=== PATIENT | male | born 1950 ===

== ENCOUNTER 2018-06-20 11:31 | Day surgery (SDC) | payer MEDICARE, OTHER ==
[~2018-06-20] VITALS: Ht 175.3 cm; Wt 66.3 kg
[~2018-06-20 11:31] MED LIST: ALBU3IS INH; ALBU90OI INH; ALBUTEROL INH; ALEN70 PO; ASPI81CH PO; ASPI81EC; BREO ELLIPTA 11 EACH; BUDE6HFA INH; CALCIUM CITRAT1 EAC1 PO; CETI5 PO; CHOL10002; CIME400 PO; DILT120; Diltiazem ER120 M1; ESOM20; ESOM20 PO; FLUSAL5005; FORM12IH; FORM12IH INH; Flexeril 10 mg10 MG PO; Fludrocortison0.1 MG PO; GUAI600T33 PO; HYDACE10B PO; LEVFLO500 PO; Levaquin750 MG PO; METO25 PO; METO50 PO; MULVITMIND PO; OXYACE5T PO; PRED20 PO; ROPI1 PO; SILD50TA; SYMBICORT; TIOT18; TIOT18 INH; TIZANIDINE HCL4 MG PO; TRAZ100 PO; TRAZ50; TRIA80TC TOP; VALD10; VICODIN 5-3001 EACH PO; Ventolin Soln3 ML NEB; [UNRECOGNIZED DRUG - REMARK]; [UNRECOGNIZED DRUG - SUPPLY] MC
== END 2018-06-20 13:15 | disposition home or self-care (01) ==
LOC: ORSCSDS 11:31
PROVIDERS: Internal Medicine Gastroenterology
PROC: 0DJ08ZZ Inspection of Upper Intestinal Tract, Via Natural or Artificial Opening Endoscopic (ICD-10-PCS; principal; 2018-06-20 13:00)
DX: K25.9 Gastric ulcer, unspecified as acute or chronic, without hemorrhage or perforation (principal); I35.0 Nonrheumatic aortic (valve) stenosis; I10 Essential (primary) hypertension; K22.70 Barrett's esophagus without dysplasia; J44.9 Chronic obstructive pulmonary disease, unspecified; K21.9 Gastro-esophageal reflux disease without esophagitis; Z87.891 Personal history of nicotine dependence; Z79.82 Long term (current) use of aspirin; Z79.899 Other long term (current) drug therapy
CPT/HCPCS: J2250

== ENCOUNTER 2018-06-21 13:42 | Day surgery (SDC) | payer MEDICARE, OTHER ==
[~2018-06-21] VITALS: Ht 175.3 cm; Wt 66.1 kg
== END 2018-06-21 15:50 | disposition home or self-care (01) ==
LOC: ORSCSDS 13:42
PROVIDERS: Internal Medicine Gastroenterology
PROC: 0D778ZZ Dilation of Stomach, Pylorus, Via Natural or Artificial Opening Endoscopic (ICD-10-PCS; principal; 2018-06-21 15:00)
DX: K25.9 Gastric ulcer, unspecified as acute or chronic, without hemorrhage or perforation (principal); K31.1 Adult hypertrophic pyloric stenosis; Z85.01 Personal history of malignant neoplasm of esophagus; J44.9 Chronic obstructive pulmonary disease, unspecified; I42.1 Obstructive hypertrophic cardiomyopathy; I10 Essential (primary) hypertension; Z79.899 Other long term (current) drug therapy; Z79.82 Long term (current) use of aspirin
CPT/HCPCS: C1726; J7120

== ENCOUNTER 2018-11-10 14:08 | Emergency (ER) | payer MEDICARE, OTHER ==
[~2018-11-10] VITALS: Ht 172.7 cm; Wt 66.2 kg
[~2018-11-10 14:08] MED LIST changes: +ACYC800 PO; +ALBU2.5V5; +ATOR10 PO; +Aspir 8181 MG PO; +BREO ELLIPTA 21 EACH INH; +CALCIUM CITRAT1 EAC6 PO; +Cartia Xt240 MG PO; +FINA5 PO; +LANS15EC PO; +POTCHL20ER PO; +SENIOR TABS1 EACH PO; +TAMS.4ER PO
[2018-11-10 14:57] LABS: BASOPHILS ABSOLUTE AUTO 0.06 K/mm3 (0.00-0.23); BASOPHILS PERCENT AUTO 1 % (0-2); EOSINOPHILS ABSOLUTE AUTO 0.08 K/mm3 (0.00-0.68); EOSINOPHILS PERCENT AUTO 1 % (0-6); Hematocrit 44.6 % (37.0-53.0); Hemoglobin 14.7 g/dL (13.5-17.5); IMMATURE GRAN ABSOLUTE AUTO 0.15 K/mm3 (0.00-0.10); IMMATURE GRAN PERCENT AUTO 2 % (0-1); LYMPHOCYTES ABSOLUTE AUTO 0.77 K/mm3 (0.84-5.20); LYMPHOCYTES PERCENT AUTO 9 % (21-46); MONOCYTES ABSOLUTE AUTO 0.56 K/mm3 (0.16-1.47); MONOCYTES PERCENT AUTO 7 % (4-13); Mean Corpuscular HGB 33.9 pg (26.0-34.0); Mean Corpuscular Volume 103 fL (80-100); Mean Platelet Volume 9.3 fL (9.1-12.4); NEUTROPHILS ABSOLUTE AUTO 6.68 K/mm3 (1.96-9.15); NEUTROPHILS PERCENT AUTO 81 % (41-73); Platelet Count 212 K/mm3 (150-400); RDW Coefficient Variation 12.6 % (11.7-14.2); Red Blood Cell Count 4.34 M/mm3 (4.30-5.90)
[2018-11-10 15:22] LABS: Alanine Aminotransfer (ALT/SGP 40 U/L (12-78); Albumin/Globulin Ratio 1.1 (0.8-1.8); Alk Phos 60 U/L (50-136); Anion Gap 7 mmol/L (6-16); Aspartate Aminotrans (AST/SGOT 17 U/L (12-37); Bilirubin, Total 0.3 mg/dL (0.1-1.0); Blood Urea Nitrogen 15 mg/dL (8-24); Bun/Creatinine Ratio 17.1 (12.0-20.0); CO2, Blood 26 mmol/L (21-32); Calcium, Blood 8.8 mg/dL (8.5-10.1); Chloride, Blood 108 mmol/L (98-108); Creatinine, Blood 0.88 mg/dL (0.60-1.20); Globulin, Blood 3.5 g/dL (2.2-4.0); Glomerular Filtration Rate >60 (60-); Glucose, Blood 121 mg/dL (70-99); Potassium, Blood 4.6 mmol/L (3.5-5.5); Sodium, Blood 141 mmol/L (136-145); Total Protein, Blood 7.5 g/dL (6.4-8.2); Troponin I <0.015 ng/mL (0.000-0.040)
[2018-11-10] MEDS ORDERED: Prednisone20 MG PO (17:38)
[2018-11-10] MEDS ORDERED: LEVFLO500 PO (17:38)
[2018-12-18] MEDS ORDERED: Cartia Xt240 MG PO (08:43)
[2018-12-18] MEDS ORDERED: Aspir 8181 MG PO (08:43)
[2018-12-18] MEDS ORDERED: ATOR10 PO (08:44)
[2018-12-18] MEDS ORDERED: ALBU90OI INH (08:44)
[2018-12-18] MEDS ORDERED: Fludrocortison0.1 MG PO (08:44)
[2018-12-18] MEDS ORDERED: TRAZ100 PO (08:44)
[2018-12-18] MEDS ORDERED: POTCHL20ER PO (08:44)
[2018-12-18] MEDS ORDERED: CALCIUM CITRAT1 EAC3 PO (08:45)
[2018-12-18] MEDS ORDERED: SENIOR TABS1 EACH PO (08:45)
[2018-12-18] MEDS ORDERED: TIOT18 INH (08:45)
[2018-12-18] MEDS ORDERED: ALBU2.5V5 (08:46)
[2018-12-18] MEDS ORDERED: BREO ELLIPTA 21 EACH INH (08:46)
[2018-12-18] MEDS ORDERED: TAMS.4ER PO (08:46)
[2018-12-18] MEDS ORDERED: ROPI1 PO (08:46)
[2018-12-18] MEDS ORDERED: FINA5 PO (08:47)
[2018-12-18] MEDS ORDERED: LANS15EC PO (08:47)
[2018-12-18] MEDS ORDERED: CETI5 PO (08:47)
[2018-12-18] MEDS ORDERED: ALBU3IS (08:47)
== END 2018-11-10 18:39 | disposition home or self-care (01) ==
LOC: ER 14:08
PROVIDERS: Physician Assistant
DX: J44.0 Chronic obstructive pulmonary disease with (acute) lower respiratory infection (principal); J20.9 Acute bronchitis, unspecified; D64.9 Anemia, unspecified; K21.9 Gastro-esophageal reflux disease without esophagitis; G47.33 Obstructive sleep apnea (adult) (pediatric); M19.90 Unspecified osteoarthritis, unspecified site; Z79.82 Long term (current) use of aspirin; Z79.899 Other long term (current) drug therapy; Z87.891 Personal history of nicotine dependence
CPT/HCPCS: 36415; 71046; 80053; 84484; 85025; 93005; 93010; 99285-25

== ENCOUNTER 2018-11-30 10:51 | Day surgery (SDC) | payer MEDICARE, OTHER ==
[~2018-11-30] VITALS: Ht 175.3 cm; Wt 66.9 kg
[~2018-11-30 10:51] MED LIST changes: +Prednisone20 MG PO
[2018-12-18] MEDS ORDERED: Cartia Xt240 MG PO (08:43)
[2018-12-18] MEDS ORDERED: Aspir 8181 MG PO (08:43)
[2018-12-18] MEDS ORDERED: ATOR10 PO (08:44)
[2018-12-18] MEDS ORDERED: Fludrocortison0.1 MG PO (08:44)
[2018-12-18] MEDS ORDERED: ALBU90OI INH (08:44)
[2018-12-18] MEDS ORDERED: TRAZ100 PO (08:44)
[2018-12-18] MEDS ORDERED: POTCHL20ER PO (08:44)
[2018-12-18] MEDS ORDERED: TIOT18 INH (08:45)
[2018-12-18] MEDS ORDERED: SENIOR TABS1 EACH PO (08:45)
[2018-12-18] MEDS ORDERED: CALCIUM CITRAT1 EAC3 PO (08:45)
[2018-12-18] MEDS ORDERED: BREO ELLIPTA 21 EACH INH (08:46)
[2018-12-18] MEDS ORDERED: ALBU2.5V5 (08:46)
[2018-12-18] MEDS ORDERED: TAMS.4ER PO (08:46)
[2018-12-18] MEDS ORDERED: ROPI1 PO (08:46)
[2018-12-18] MEDS ORDERED: CETI5 PO (08:47)
[2018-12-18] MEDS ORDERED: FINA5 PO (08:47)
[2018-12-18] MEDS ORDERED: ALBU3IS (08:47)
[2018-12-18] MEDS ORDERED: LANS15EC PO (08:47)
== END 2018-11-30 14:20 | disposition home or self-care (01) ==
LOC: ORSCSDS 10:51
PROVIDERS: Internal Medicine Gastroenterology
PROC: 0DBK8ZX Excision of Ascending Colon, Via Natural or Artificial Opening Endoscopic, Diagnostic (ICD-10-PCS; principal; 2018-11-30 12:00)
PROC: 0DBL8ZX Excision of Transverse Colon, Via Natural or Artificial Opening Endoscopic, Diagnostic (ICD-10-PCS; principal; 2018-11-30 12:00)
PROC: 0DBM8ZX Excision of Descending Colon, Via Natural or Artificial Opening Endoscopic, Diagnostic (ICD-10-PCS; principal; 2018-11-30 12:00)
PROC: 0DJ08ZZ Inspection of Upper Intestinal Tract, Via Natural or Artificial Opening Endoscopic (ICD-10-PCS; principal; 2018-11-30 12:00)
DX: Z12.11 Encounter for screening for malignant neoplasm of colon (principal); Z86.010 Personal history of colon polyps; D12.3 Benign neoplasm of transverse colon; D12.2 Benign neoplasm of ascending colon; D12.4 Benign neoplasm of descending colon; K21.9 Gastro-esophageal reflux disease without esophagitis; K57.30 Diverticulosis of large intestine without perforation or abscess without bleeding; K64.8 Other hemorrhoids; K64.4 Residual hemorrhoidal skin tags; K31.1 Adult hypertrophic pyloric stenosis; Z87.11 Personal history of peptic ulcer disease; Z87.19 Personal history of other diseases of the digestive system; J44.9 Chronic obstructive pulmonary disease, unspecified; Z79.899 Other long term (current) drug therapy
CPT/HCPCS: 88305; J1980; J2250; J7120

== ENCOUNTER 2018-12-26 13:30 | Day surgery (SDC) | payer MEDICARE, OTHER ==
[~2018-12-26] VITALS: Ht 175.3 cm; Wt 67.4 kg
[~2018-12-26 13:30] MED LIST changes: +ALBU3IS; +CALCIUM CITRAT1 EAC3 PO
[2018-12-26] MEDS ORDERED: DIAZ10 (15:03)
== END 2018-12-26 17:20 | disposition home or self-care (01) ==
LOC: ORSCSDS 13:30
DX: K31.1 Adult hypertrophic pyloric stenosis (principal); K25.9 Gastric ulcer, unspecified as acute or chronic, without hemorrhage or perforation; K21.9 Gastro-esophageal reflux disease without esophagitis; Z12.11 Encounter for screening for malignant neoplasm of colon; D12.3 Benign neoplasm of transverse colon; D12.4 Benign neoplasm of descending colon; K63.5 Polyp of colon; K57.30 Diverticulosis of large intestine without perforation or abscess without bleeding; K64.8 Other hemorrhoids; I10 Essential (primary) hypertension; J44.9 Chronic obstructive pulmonary disease, unspecified; Z87.891 Personal history of nicotine dependence; Z79.899 Other long term (current) drug therapy
CPT/HCPCS: 88305; C1726; J7120

== ENCOUNTER 2019-04-03 15:55 | Inpatient (IN) | payer MEDICARE, OTHER ==
[~2019-04-03] VITALS: Ht 172.7 cm; Wt 79.5 kg
[~2019-04-03 15:55] MED LIST changes: -ALBU3IS; -CALCIUM CITRAT1 EAC3 PO; +CLOP75 PO; +DIAZ10; +HYDCOR10 PO; +LANS30EC PO; +Ropinirole HCl1 MG PO
[2019-04-03 16:35] LABS: BASOPHILS ABSOLUTE AUTO 0.02 K/mm3 (0.00-0.23); BASOPHILS PERCENT AUTO 0 % (0-2); EOSINOPHILS PERCENT AUTO 1 % (0-6); Hematocrit 43.9 % (37.0-53.0); Hemoglobin 14.5 g/dL (13.5-17.5); IMMATURE GRAN ABSOLUTE AUTO 0.08 K/mm3 (0.00-0.10); IMMATURE GRAN PERCENT AUTO 1 % (0-1); LYMPHOCYTES ABSOLUTE AUTO 0.69 K/mm3 (0.84-5.20); LYMPHOCYTES PERCENT AUTO 7 % (21-46); MONOCYTES ABSOLUTE AUTO 0.78 K/mm3 (0.16-1.47); MONOCYTES PERCENT AUTO 8 % (4-13); Mean Corpuscular HGB 34.1 pg (26.0-34.0); Mean Corpuscular Volume 103 fL (80-100); Mean Platelet Volume 9.3 fL (9.1-12.4); NEUTROPHILS ABSOLUTE AUTO 7.78 K/mm3 (1.96-9.15); NEUTROPHILS PERCENT AUTO 82 % (41-73); Platelet Count 288 K/mm3 (150-400); RDW Coefficient Variation 11.9 % (11.7-14.2); RDW Standard Deviation 45.6 fL (35.1-46.3); Red Blood Cell Count 4.25 M/mm3 (4.30-5.90); White Blood Cell Count 9.45 K/mm3 (4.00-11.30)
[2019-04-03 17:12] LABS: Alanine Aminotransfer (ALT/SGP 17 U/L (12-78); Albumin, Blood 3.3 g/dL (3.4-5.0); Albumin/Globulin Ratio 0.7 (0.8-1.8); Alk Phos 71 U/L (50-136); Anion Gap 6 mmol/L (6-16); Aspartate Aminotrans (AST/SGOT 11 U/L (12-37); Bilirubin, Total 0.4 mg/dL (0.1-1.0); Blood Urea Nitrogen 14 mg/dL (8-24); Bun/Creatinine Ratio 16.1 (12.0-20.0); CO2, Blood 29 mmol/L (21-32); Calcium, Blood 9.4 mg/dL (8.5-10.1); Chloride, Blood 103 mmol/L (98-108); Creatinine, Blood 0.87 mg/dL (0.60-1.20); Globulin, Blood 4.5 g/dL (2.2-4.0); Glomerular Filtration Rate >60 (60-); Glucose, Blood 123 mg/dL (70-99); Potassium, Blood 4.5 mmol/L (3.5-5.5); Sodium, Blood 138 mmol/L (136-145); Total Protein, Blood 7.8 g/dL (6.4-8.2); Troponin I <0.015 ng/mL (0.000-0.040)
[2019-04-03] MEDS ORDERED: PRAMIPEXOLE D0.25 MG PO (17:28)
[2019-04-03 18:06] LABS: International Normalized Ratio 1.03; Prothrombin Time Results 10.9 Sec (9.7-11.5)
[2019-04-03] MEDS ORDERED: CALCIUM CITRAT1 EAC3 PO (18:11)
[2019-04-03] MEDS ORDERED: Thera-M1 EACH PO (18:12)
[2019-04-03] MEDS ORDERED: IRON PO (18:13)
[2019-04-03] MEDS ORDERED: CHOL10002 PO (18:13)
[2019-04-03] MEDS ORDERED: CETI5 PO (18:14)
[2019-04-03] MEDS ORDERED: ACYC800 PO (18:14)
[2019-04-03] MEDS ORDERED: ALBU2.5V5 NEB (18:15)
[2019-04-03] MEDS ORDERED: Norco 10-325 T1 EACH PO (18:16)
--- NOTE | 2019-04-03 21:30 | NUR ---
ASSUMED CARE REPORT TAKEN FROM ED RN ON PT. PT TO ROOM AND ABLE TO TRANSFER SELF FROM [facility] TO BED W/O ASSIST. PT ON 4L O2 VIA NC, SATS >92%. PT REPORTS CHEST WALL AND BACK PAIN W/ DEEP INSPIRATION AND COUGHS. PER PT AND SPOUSE PT HAS HX OF BARRETS ESOPHAGUS AND HAD ESOPHAGECTOMY. PT ALSO HAS SIGNIFICANT HX OF OSTEOARTHRITIS W/ MULTIPLE FX, PT HAS FX'D RIBS W/ COUGHING IN THE PAST. CHEST XRAY WAS CLEAR OF FX. PT DENIES ANY OTHER PROBLEMS EXCEPT CHEST WALL PAIN, WILL MEDICATE PER EMAR. CALL LIGHT IS IN REACH OF PT. SPOUSE AT BEDSIDE.
[2019-04-04 04:36] LABS: Hematocrit 38.2 % (37.0-53.0); Hemoglobin 12.2 g/dL (13.5-17.5); Mean Corpuscular HGB 33.4 pg (26.0-34.0); Mean Corpuscular HGB Conc 31.9 g/dL (31.5-36.5); Mean Corpuscular Volume 105 fL (80-100); Mean Platelet Volume 9.5 fL (9.1-12.4); Platelet Count 229 K/mm3 (150-400); RDW Coefficient Variation 12.1 % (11.7-14.2); RDW Standard Deviation 47.8 fL (35.1-46.3); Red Blood Cell Count 3.65 M/mm3 (4.30-5.90); White Blood Cell Count 8.14 K/mm3 (4.00-11.30)
[2019-04-04 05:00] LABS: Anion Gap 5 mmol/L (6-16); Blood Urea Nitrogen 13 mg/dL (8-24); Bun/Creatinine Ratio 15.7 (12.0-20.0); CO2, Blood 29 mmol/L (21-32); Chloride, Blood 103 mmol/L (98-108); Creatinine, Blood 0.83 mg/dL (0.60-1.20); Glomerular Filtration Rate >60 (60-); Glucose, Blood 95 mg/dL (70-99); Magnesium, Blood 1.9 mg/dL (1.6-2.4); Potassium, Blood 4.4 mmol/L (3.5-5.5); Sodium, Blood 137 mmol/L (136-145)
--- NOTE | 2019-04-04 05:57 | NUR ---
SHIFT SUMMARY PT IS SLEEPING IN ROOM COMFORTABLY AT THIS TIME. NO ACUTE CHANGES IN STATUS T/O NIGHT. PT CONTINUED TO HAVE CHEST WALL PAIN W/ COUGH, WAS MEDICATED PER EMAR FOR PAIN. PIV IN LAC WAS REMOVED D/T PAIN TO AREA, AND NEW PIV PLACED IN LFA W/ LR INFUSING. RESP EVEN UNLBAORED ON 3.5L 02 VIA NC W/ SATS >92%. WILL CONT TO TITRATE DOWN. DENIED OTHER NEEDS. CALL LIGHT IN REACH.
--- NOTE | 2019-04-04 11:40 | NUR ---
Reports sputum production of rose color, leather drier than yesterday. Reports coughing is painful in his left posterior chest, and also at rest. No dyspnea with walking into the bathroom to void, while wearing oxygen at4 l/min. Lung sounds are clear except for fine crackles on the left posterior base. He is receiving NOrco for pain relief. States no bowel movement since Tuesday. No bowel care ordered yet; will request from primary physician today.
--- NOTE | 2019-04-04 19:40 | NUR ---
ASSUMED CARE PT IS RESTING IN ROOM COMFORTABLY AT THIS TIME W/ SPOUSE AT BEDSIDE. PER DAY SHIFT PT REMAINS ON 4L O2 VIA NC, W/ SATS >92%. ATTEMPTED TO TITRATE O2 DONW AND SATS DIPPED BELOW 90%. PT REPORTS FEELING MUCH BETTER TODAY, STILL REPORTS PAINFUL CHEST WALL AND BACK AT RIBS FROM COUGHING. PT HAS BEEN MEDICATED T/O DAY FOR PAIN PER EMAR. LR INFUSING IN PIV AT 75ML/HR. PT IS INDEPENDENT IN ROOM TO USE URINAL AT BEDSIDE, CALLS APPROPRIATELY. DENIES OTHER NEEDS AT THIS TIME. CALL LIGHT IN REACH.
--- NOTE | 2019-04-05 06:03 | NUR ---
SHIFT SUMMARY PT SLEEPING IN ROOM COMFORTABLY AT THSI TIME. NO ACUTE CHANGES IN STATUS T/O NIGHT. PT SLEPT WELL AND WAS MEDICATED FOR CHEST WALL/BACK PAIN PER EMAR. RESP EVEN UNLABORED ON 4L NC W/ SATS >92%. DENIED OTHER NEEDS T/O NIGHT. PT INDEPENDENT IN ROOM. CALL LIGHT W/IN REACH.
--- NOTE | 2019-04-05 19:04 | NUR ---
Dwight has had no complaints today except for the ongoing pain in his left posterior side, for which he has been requesting and receiving Ezel every 4 hours. He states that it is painful when he coughs, but has gotten good relief with the NOrco. Lidocaine patch was placed today, but he said it didn't provide much relief. Bowel care was also started as he had not had a bowel movement yet. he stated that his appetite was better today. Ambulatory to the bathroom, independently. He has stayed on the 4 l/min oxygen delivery today, spo2 is from 89-92% at rest. CT scan was completed this afternoon. IV fluids to continue per Dr. Vazquez until current bag is completed after the CT scan.
[2019-04-06 04:58] LABS: BASOPHILS ABSOLUTE AUTO 0.03 K/mm3 (0.00-0.23); BASOPHILS PERCENT AUTO 0 % (0-2); EOSINOPHILS ABSOLUTE AUTO 0.09 K/mm3 (0.00-0.68); EOSINOPHILS PERCENT AUTO 1 % (0-6); Hematocrit 34.1 % (37.0-53.0); Hemoglobin 11.3 g/dL (13.5-17.5); IMMATURE GRAN ABSOLUTE AUTO 0.09 K/mm3 (0.00-0.10); IMMATURE GRAN PERCENT AUTO 1 % (0-1); LYMPHOCYTES ABSOLUTE AUTO 0.58 K/mm3 (0.84-5.20); LYMPHOCYTES PERCENT AUTO 6 % (21-46); MONOCYTES ABSOLUTE AUTO 0.75 K/mm3 (0.16-1.47); MONOCYTES PERCENT AUTO 8 % (4-13); Mean Corpuscular HGB 34.1 pg (26.0-34.0); Mean Corpuscular HGB Conc 33.1 g/dL (31.5-36.5); Mean Corpuscular Volume 103 fL (80-100); Mean Platelet Volume 9.3 fL (9.1-12.4); NEUTROPHILS ABSOLUTE AUTO 8.26 K/mm3 (1.96-9.15); NEUTROPHILS PERCENT AUTO 84 % (41-73); Platelet Count 226 K/mm3 (150-400); Red Blood Cell Count 3.31 M/mm3 (4.30-5.90)
[2019-04-06 05:23] LABS: Alanine Aminotransfer (ALT/SGP 20 U/L (12-78); Albumin, Blood 2.3 g/dL (3.4-5.0); Albumin/Globulin Ratio 0.6 (0.8-1.8); Alk Phos 49 U/L (50-136); Anion Gap 5 mmol/L (6-16); Aspartate Aminotrans (AST/SGOT 12 U/L (12-37); Bilirubin, Total 0.3 mg/dL (0.1-1.0); Blood Urea Nitrogen 8 mg/dL (8-24); Bun/Creatinine Ratio 11.1 (12.0-20.0); CO2, Blood 29 mmol/L (21-32); Calcium, Blood 8.3 mg/dL (8.5-10.1); Chloride, Blood 100 mmol/L (98-108); Creatinine, Blood 0.72 mg/dL (0.60-1.20); Globulin, Blood 3.7 g/dL (2.2-4.0); Glomerular Filtration Rate >60 (60-); Glucose, Blood 111 mg/dL (70-99); Phosphorus, Blood 3.2 mg/dL (2.5-4.9); Potassium, Blood 4.1 mmol/L (3.5-5.5); Sodium, Blood 134 mmol/L (136-145)
--- NOTE | 2019-04-06 06:39 | NUR ---
SHIFT SUMMARY PT IS SLEEPING IN ROOM COMFORTABLY AT THIS TIME. NO ACUTE CHANGES IN STATUS OVERNIGHT. PT REMAINED INDEPENDENT IN ROOM. RESP EVEN UNLABORED AT REST, SOME DYSPNEA W/ AMBULATION. SATS >92% ON 4L NC. PT WAS PAINFUL IN BACK/RIBS D/T COUGH T/O NIGHT AND WAS MEDICATED PER EMAR. DENIED OTHER NEEDS. CALL LIGHT IN REACH.
--- NOTE | 2019-04-06 07:00 | NUR ---
REPORT FROM FLAKO PINTO. ASSUMED PT CARE.
--- NOTE | 2019-04-06 07:58 | NUR ---
ASSESSMENT AT CHARTED. VSS. PT ALERT AND ORIENTED. STATES PAIN COMING BACK. DISCUSSED PLAN OF CARE WITH PT. CALL LIGHT IN REACH. PT ON 4L O2 PER CANNULA. PT STATES THAT HIS O2 NEEDS TO BE >95% ON 2L.
--- NOTE | 2019-04-06 08:33 | NUR ---
PT MEDICATED PER EMAR. PT WORKING ON BFAST TRAY AT THIS TIME. WATER PROVIDED, CALL LIGHT IN REACH. AMBULATES INDEPENDENTLY IN ROOM.
--- NOTE | 2019-04-06 09:50 | NUR ---
RESP STAFF AT BEDSIDE FOR SCHEDULED TX. PT STATES DIZZINESS SOME WHAT IPROVED.
--- NOTE | 2019-04-06 10:15 | NUR ---
DISCUSSED MEDICATIONS WITH DR CORDOBA. VERBAL ORDER RECEIVED FOR CORTEF, BENADRYL AND CLARITIN. MED ORDERS PLACED.
--- NOTE | 2019-04-06 10:49 | NUR ---
PT MEDICATED WITH SCHED MEDS. FAMILY AT BEDSIDE.
--- NOTE | 2019-04-06 11:50 | NUR ---
LUNCH TRAY PROVIDED. PT IN NADN. PAIN IMPROVED.
--- NOTE | 2019-04-06 12:42 | NUR ---
PT SITTING IN POSITION OF COMFORT. VSS. PT DENIES NEEDS.
--- NOTE | 2019-04-06 14:54 | NUR ---
PT MEDICATED WITH NORCO PER ORDERS. PLANS TO REST. DOOR CLOSED FOR PRIVACY. PT DENIES FURTHER NEEDS.
--- NOTE | 2019-04-06 15:55 | NUR ---
DISCUSSED PT STATUS WITH DR CORDOBA. PLAN TO MOVE PT TO MEDICAL.
--- NOTE | 2019-04-06 16:04 | NUR ---
ROOM ASSIGNMENT RECEIVED. 357.
--- NOTE | 2019-04-06 16:15 | NUR ---
PT MEDICATED WITH PROTONIX PER EMAR. PT MORE COMFORTABLE. PT AWARE OF MOVE.
--- NOTE | 2019-04-06 16:55 | NUR ---
MED FLOOR RN AWARE OF PT TX. WILL CALL FOR REPORT.
--- NOTE | 2019-04-06 17:19 | NUR ---
REPORT TO MERRITT PINTO ON MEDICAL FLOOR.
--- NOTE | 2019-04-06 17:25 | NUR ---
PT EATING DINNER. ROCEPHIN STARTED PER EMAR.
--- NOTE | 2019-04-06 17:36 | NUR ---
PT TO MEDICAL FLOOR. MEDS SENT WITH PT.
--- NOTE | 2019-04-06 19:16 | NUR ---
TRANSFER NOTE/ SHIFT SUMMARY- PT TRANSFERED TO MEDICAL FLOOR FROM PCU 11. PT SPOUSE IS AT THE BEDSIDE. PT INDEPENDENT IN THE ROOM, IV WENT BAD WHEN PT ARRIVED AND NEW ONE WAS PLACED PT TOLLERATED WELL. ABX RUNNING CURRENTLY IN THE NEW IV. THEN SL. PASSED ON IN BEDSIDE REPORT TO NIGHT MILLIE FLORES. PT REQUESTED PAIN MEDICATION DURRING REPORT MILLIE FLORES WILL MEDICATE PER EMAR.
--- NOTE | 2019-04-07 04:22 | NUR ---
SHIFT SUMMARY: PT IS ALERT AND ORIENTED. PT IS CALM, FRIENDLY, AND COOPERATIVE WITH CARE. PT CALLS APPROPRIATELY. PT'S IN THE ROOM AT SHIFT CHANGE, LEFT FOR HOME SHORTLY THEREAFTER. PT REPORTS L. RIB PAIN, MEDICATING PER EMAR. PT REPORTS MINOR SOB UPON EXERTION. PT AMBULATING INDEPENDENTLY IN THE ROOM. PT DENIES NAUSEA AND VOMITING. PT SLEPT INTERMITTENTLY THROUGHOUT THE NIGHT. NO ACUTE CHANGES. WILL REPORT TO DAY NURSE.
[2019-04-07 05:14] LABS: BASOPHILS ABSOLUTE AUTO 0.02 K/mm3 (0.00-0.23); BASOPHILS PERCENT AUTO 0 % (0-2); EOSINOPHILS ABSOLUTE AUTO 0.04 K/mm3 (0.00-0.68); EOSINOPHILS PERCENT AUTO 1 % (0-6); Hematocrit 35.1 % (37.0-53.0); Hemoglobin 11.2 g/dL (13.5-17.5); IMMATURE GRAN ABSOLUTE AUTO 0.13 K/mm3 (0.00-0.10); IMMATURE GRAN PERCENT AUTO 2 % (0-1); LYMPHOCYTES ABSOLUTE AUTO 0.42 K/mm3 (0.84-5.20); LYMPHOCYTES PERCENT AUTO 6 % (21-46); MONOCYTES PERCENT AUTO 6 % (4-13); Mean Corpuscular HGB 32.8 pg (26.0-34.0); Mean Corpuscular HGB Conc 31.9 g/dL (31.5-36.5); Mean Corpuscular Volume 103 fL (80-100); Mean Platelet Volume 9.4 fL (9.1-12.4); NEUTROPHILS ABSOLUTE AUTO 5.92 K/mm3 (1.96-9.15); NEUTROPHILS PERCENT AUTO 85 % (41-73); Platelet Count 290 K/mm3 (150-400); RDW Standard Deviation 45.6 fL (35.1-46.3); Red Blood Cell Count 3.41 M/mm3 (4.30-5.90); White Blood Cell Count 6.93 K/mm3 (4.00-11.30)
--- NOTE | 2019-04-07 17:57 | NUR ---
SHIFT SUMMARY PT IS A&OX3. PT IS CALM AND COOPERATIVE. PT IS SELF AMBULATORY IN THE ROOM. S/O HAS BEEN IN THE ROOM WITH THE PT FOR MUCH OF THIS SHIFT. PT HAS RECEIVED PAIN MEDICATION PER EMAR 2X PRN FOR PAIN IN L RIBS. PT HAS BEEN IN BED EXCEPT FOR TRIPS TO THE BATHROOM DURING THIS SHIFT. PT ENCOURAGED TO SIT IN CHAIR. PT DENIES ADDITIONAL NEEDS AT THIS TIME. WILL CONTINUE TO MONITOR.
--- NOTE | 2019-04-08 03:36 | NUR ---
SHIFT SUMMARY: PT IS ALERT AND ORIENTED. PT IS CALM, FRIENDLY, AND COOPERATIVE WITH CARE. PT CALLS APPROPRIATELY. PT IS INDEPENDENT IN THE ROOM. PT CONTINUES TO REPORT L. RIB PAIN, MEDICATING PER EMAR. PT'S IN VISITING AT THE START OF SHIFT, LEFT SHORTLY THEREAFTER. PT REPORTS SOB UPON EXERTION, O2 @ 4 L VIA NC KEEPING SATS > 90%. PT DENIES NAUSEA AND VOMITING. NO ACUTE CHANGES OR COMPLICATIONS. WILL REPORT TO DAY NURSE.
--- NOTE | 2019-04-08 17:08 | NUR ---
SHIFT SUMMARY PT HAS BEEN ALERT AND ORIENTED THROUGHOUT THIS SHIFT. PT'S S/O HAS BEEN IN THE ROOM WITH THE PT FOR MUCH OF THE SHIFT. PT HAS BEEN MEDICATED FOR PAIN IN HIS RIBS 2X DURING THIS SHIFT. PT IS SELF AMBULATORY IN THE ROOM. PT CALLS APPROPRIATLY AND HAS THE CALL LIGHT IN REACH. PT DENIES FURTHER NEEDS AT THIS TIME. WILL CONTINUE TO MONITOR.
--- NOTE | 2019-04-08 18:23 | NUR ---
I AGREE WIT THE SN FOSTER AM ASSESSMENT AND CARE OF THE PT TODAY
--- NOTE | 2019-04-09 03:57 | NUR ---
SHIFT SUMMARY: PT IS ALERT AND ORIENTED. PT IS CALM AND COOPERATIVE WITH CARE. PT CALLS APPROPRIATELY. PT IS INDEPENDENT IN THE ROOM. PT'S IN VISITING AT SHIFT CHANGE AGAIN. PT CONTINUES TO REPORT L. RIB PAIN, MEDICATING PER EMAR. PT REPORTS SOB UPON EXERTION, O2 KEEPING SATS > 90%. BREATHING TREATMENTS SCHEDULED AND NEEDED. PT DENIES NAUSEA AND VOMITING. PT SLEPT MUCH OF THE NIGHT WHEN NOT DISTURBED. WILL CONTINUE TO MONITOR.
--- NOTE | 2019-04-09 11:16 | NUR ---
HOSPITALIST ROUNDED ON PT HE WOULD LIKE THE PT TO BE TITRATED DOWN ON O2 USE, IF POSSIBLE. I HAVE BEGUN THE TRIAL NOW, WILL UPDATE RESULTS IN FUTURE NOTES.
--- NOTE | 2019-04-09 11:53 | NUR ---
O2 SAT TRIAL PT ON 3.5 LPM FOR 15 MIN - O2 SAT @ 94%, PT ON 3.5 LPM FOR 30 MIN -O2 SAT @ 95%. TITRATING DOWN TO 3 LPM
--- NOTE | 2019-04-09 12:19 | NUR ---
O2 SAT TRIAL NOW ON 2.5 LPM FOR 15 MINUTES. OUTCOME: 94% O2 SAT. CONTINUING O2 @ 2.5 LPM.
--- NOTE | 2019-04-09 13:26 | NUR ---
O2 SAT TRIAL PT SAT 92% @ 2.5 LPM AFTER APPROX 30MIN OR MORE. KEEPING O2 @ 2.5 LPM FOR NOW. WILL CONTINUE TO MONITOR.
--- NOTE | 2019-04-09 14:26 | NUR ---
PT STATUS O2 SAT TRIAL WAS INFORMED THAT THE PT HAD A PANIC ATTACK WHILE I WAS ON LUNCH, SO NURSING STAFF CALLED FOR AN RT TREATMENT. PT SAT 90% ON ROOM AIR WHILE RECEIVING A RESPIRATORY TREATMENT. RESPIRATORY THERAPIST WAS HAPPY WITH THAT SATURATION CONSIDERING THE PT'S SITUATION. CONTINUING ON WITH 2.5 LPM O2 VIA NC.
--- NOTE | 2019-04-09 15:39 | NUR ---
SHIFT SUMMARY 68 YR OLD MALE ADMITTED FOR ACUTE RESPIRATORY FAILURE/LLL PNEUMONIA/SEPSIS. FULL CODE STATUS. LIVES W/ AT HOME. A&O X4, INDEPENDENT IN ROOM. REGULAR DIET. DOES NOT USE O2 @ HOME, BUT MAY NEED A HOME O2 EVAL. WAS ON 4 LPM O2 THIS MORNING, BUT HOSPITALIST HAS REQUESTED WE TITRATE DOWN/O2 DESAT TRIAL. I HAVE ACHIEVED 2.5 LPM DURING MY SHIFT WITH O2 SAT ABOVE 90%. I FEAR TITRATING DOWN FURTHER HE HAS BEEN CONSISTENTLY SAT 91-92% @ 2.5 LPM. HE HAS A LEFT RIB FRACTURE FROM COUGHING FOR WHICH HE RECEIVES NORCO. THIS PT HAS BEEN SUFFERING FROM PANIC ATTACKS/SOB SINCE ADMIT. I QUESTIONED HIM ABOUT HIS HX REGARDING THIS AND HE STATED HE MAY HAVE EXPERIENCED A FEW PANIC ATTACKS IN HIS LIFE PREVIOUS, BUT NEVER THIS FREQUENT/SEVERE. I PROVIDED HIM PT EDUCATION RE: PANIC ATTACKS. HX: COPD, RLS, RIB FRACTURE, ARTHRITIS, 56 BROKEN BONES (HX: [employer]). PLAN IS FOR HIM TO DC TOMORROW W/HOME O2 EVAL.
--- NOTE | 2019-04-10 05:48 | NUR ---
04/10/19 0530 SLEEPING WELL. VITALS STABLE. MEDICATED FOR PAIN--SEE MAR. O2 REMAINS AT 2.5 LPM. UNEVENTFUL NIGHT.
[2019-04-10] MEDS ORDERED: BENZ100A PO (14:47)
[2019-04-10] MEDS ORDERED: MUCUS ER600 MG PO (14:49)
[2019-04-10] MEDS ORDERED: Florastor250 MG PO (14:50)
[2019-04-10] MEDS ORDERED: LEVFLO500 PO (14:50)
--- NOTE | 2019-04-10 15:06 | NUR ---
PT DISCHARGED PT DISCHARGED AT 1505. PT IN STABLE CONDITION WITH VSS. PT & EDUCATED ON DC INSTRUCTIONS, FOLLOW UP APPOINTMENTS, & NEW MEDS. PT WHEELED OUT BY [employer] DESK & DRIVEN HOME BY . [facility] PROVIDED O2 FOR TRANSPORT.
== END 2019-04-10 15:05 | disposition home or self-care (01) | DRG 871 ==
LOC: ER 15:55 → PCU 18:06 → MEDS 04-06 17:45
PROVIDERS: Emergency Medicine; Hospitalist; Nurse Practitioner Acute Care; Student in an Organized Health Care Education/Training Program; ADMIT Internal Medicine
DX: A41.9 Sepsis, unspecified organism (principal); J96.01 Acute respiratory failure with hypoxia; B19.10 Unspecified viral hepatitis B without hepatic coma; Z87.891 Personal history of nicotine dependence; I10 Essential (primary) hypertension; K22.70 Barrett's esophagus without dysplasia; G25.81 Restless legs syndrome; G47.33 Obstructive sleep apnea (adult) (pediatric); Z98.890 Other specified postprocedural states; E78.5 Hyperlipidemia, unspecified; Z79.01 Long term (current) use of anticoagulants; I95.1 Orthostatic hypotension; J43.9 Emphysema, unspecified; D64.9 Anemia, unspecified; F41.0 Panic disorder [episodic paroxysmal anxiety]
CPT/HCPCS: 36415; 71046; 71260; 80048; 80053; 83605; 83735; 84100; 84145; 84484; 85025; 85027; 85610; 87040; 87070; 87205; 93005; 93010; 94640; 94667; 94760; 94761; 96365; 96367; 99285-25; A9270-GY; J0456; J0696; J1650; J3010; J7030; J7050; J7120; Q0163; Q9967

== ENCOUNTER 2019-06-08 18:15 | Emergency (ER) | payer MEDICARE, OTHER ==
[~2019-06-08] VITALS: Ht 172.7 cm; Wt 68.0 kg
[~2019-06-08 18:15] MED LIST changes: +ALBU2.5V5 NEB; +BENZ100A PO; +CALCIUM CITRAT1 EAC3 PO; +CHOL10002 PO; +Florastor250 MG PO; +IRON PO; +MUCUS ER600 MG PO; +Norco 10-325 T1 EACH PO; +PRAMIPEXOLE D0.25 MG PO; +Thera-M1 EACH PO
[2019-06-08 18:56] LABS: BASOPHILS ABSOLUTE AUTO 0.02 K/mm3 (0.00-0.23); BASOPHILS PERCENT AUTO 0 % (0-2); EOSINOPHILS ABSOLUTE AUTO 0.01 K/mm3 (0.00-0.68); EOSINOPHILS PERCENT AUTO 0 % (0-6); Hematocrit 42.2 % (37.0-53.0); Hemoglobin 13.8 g/dL (13.5-17.5); IMMATURE GRAN ABSOLUTE AUTO 0.03 K/mm3 (0.00-0.10); IMMATURE GRAN PERCENT AUTO 1 % (0-1); LYMPHOCYTES ABSOLUTE AUTO 0.42 K/mm3 (0.84-5.20); LYMPHOCYTES PERCENT AUTO 7 % (21-46); MONOCYTES ABSOLUTE AUTO 0.16 K/mm3 (0.16-1.47); MONOCYTES PERCENT AUTO 3 % (4-13); Mean Corpuscular HGB 34.1 pg (26.0-34.0); Mean Corpuscular HGB Conc 32.7 g/dL (31.5-36.5); Mean Corpuscular Volume 104 fL (80-100); Mean Platelet Volume 9.7 fL (9.1-12.4); NEUTROPHILS ABSOLUTE AUTO 5.73 K/mm3 (1.96-9.15); NEUTROPHILS PERCENT AUTO 90 % (41-73); Platelet Count 240 K/mm3 (150-400); RDW Coefficient Variation 13.3 % (11.7-14.2); RDW Standard Deviation 51.5 fL (35.1-46.3); Red Blood Cell Count 4.05 M/mm3 (4.30-5.90); White Blood Cell Count 6.37 K/mm3 (4.00-11.30)
[2019-06-08 19:17] LABS: Alanine Aminotransfer (ALT/SGP 27 U/L (12-78); Albumin, Blood 4.1 g/dL (3.4-5.0); Albumin/Globulin Ratio 1.1 (0.8-1.8); Alk Phos 108 U/L (50-136); Anion Gap 7 mmol/L (6-16); Aspartate Aminotrans (AST/SGOT 14 U/L (12-37); Bilirubin, Total 0.6 mg/dL (0.1-1.0); Blood Urea Nitrogen 22 mg/dL (8-24); CO2, Blood 28 mmol/L (21-32); Calcium, Blood 11.5 mg/dL (8.5-10.1); Chloride, Blood 100 mmol/L (98-108); Creatinine, Blood 1.05 mg/dL (0.60-1.20); Globulin, Blood 3.6 g/dL (2.2-4.0); Glomerular Filtration Rate >60 (60-); Glucose, Blood 201 mg/dL (70-99); Potassium, Blood 4.9 mmol/L (3.5-5.5); Sodium, Blood 135 mmol/L (136-145); Total Protein, Blood 7.7 g/dL (6.4-8.2)
== END 2019-06-08 22:55 | disposition home or self-care (01) ==
LOC: ER 18:15
PROVIDERS: Emergency Medicine
DX: J44.1 Chronic obstructive pulmonary disease with (acute) exacerbation (principal); I48.91 Unspecified atrial fibrillation; G47.33 Obstructive sleep apnea (adult) (pediatric); Z87.891 Personal history of nicotine dependence; Z79.899 Other long term (current) drug therapy; Z79.52 Long term (current) use of systemic steroids; Z99.81 Dependence on supplemental oxygen
CPT/HCPCS: 36415; 71046; 80053; 85025; 93005; 93010; 94640; 96360; 99285-25; J7030

== ENCOUNTER 2019-06-14 21:13 | Emergency (ER) | payer MEDICARE, OTHER ==
[~2019-06-14] VITALS: Ht 172.7 cm; Wt 70.3 kg
[2019-06-14] MEDS ORDERED: Afrin15 ML (22:14)
== END 2019-06-14 23:42 | disposition home or self-care (01) ==
LOC: ER 21:13
DX: R04.0 Epistaxis (principal); J43.9 Emphysema, unspecified; K21.9 Gastro-esophageal reflux disease without esophagitis; I10 Essential (primary) hypertension; E78.5 Hyperlipidemia, unspecified; Z87.891 Personal history of nicotine dependence; Z79.899 Other long term (current) drug therapy
CPT/HCPCS: 30901; 99283-25

== ENCOUNTER 2019-06-29 11:52 | Day surgery (SDC) | payer MEDICARE, OTHER ==
[~2019-06-29] VITALS: Ht 175.3 cm; Wt 66.9 kg
[~2019-06-29 11:52] MED LIST changes: +Afrin15 ML
== END 2019-06-29 14:50 | disposition home or self-care (01) ==
LOC: ORSCSDS 11:52
PROVIDERS: Internal Medicine Gastroenterology
PROC: 0D778ZZ Dilation of Stomach, Pylorus, Via Natural or Artificial Opening Endoscopic (ICD-10-PCS; principal; 2019-06-29 13:30)
DX: K31.1 Adult hypertrophic pyloric stenosis (principal); J44.9 Chronic obstructive pulmonary disease, unspecified; Z87.11 Personal history of peptic ulcer disease; Z87.891 Personal history of nicotine dependence; Z79.899 Other long term (current) drug therapy
CPT/HCPCS: C1726; J2250; J2704; J7120

== ENCOUNTER 2019-07-18 00:36 | Emergency (ER) | payer MEDICARE, OTHER ==
[~2019-07-18] VITALS: Ht 172.7 cm; Wt 68.0 kg
== END 2019-07-18 02:37 | disposition home or self-care (01) ==
LOC: ER 00:36
DX: J02.9 Acute pharyngitis, unspecified (principal); T48.3X5A Adverse effect of antitussives, initial encounter; Z79.899 Other long term (current) drug therapy; J44.9 Chronic obstructive pulmonary disease, unspecified; K21.9 Gastro-esophageal reflux disease without esophagitis; E78.5 Hyperlipidemia, unspecified; I10 Essential (primary) hypertension; J45.909 Unspecified asthma, uncomplicated; Z87.891 Personal history of nicotine dependence
CPT/HCPCS: 94640; 99283-25; J7512; Q0163

== ENCOUNTER → 2019-11-20 | Outpatient (CLI) | payer MEDICARE, OTHER | END | disposition home or self-care (01) | LOC: PLD 07:29 → LAB SHORT 07:29 | DX: D11.0 Benign neoplasm of parotid gland (principal) | CPT/HCPCS: 88173 ==

== ENCOUNTER → 2020-04-30 | Outpatient (CLI) | payer MEDICARE, OTHER | END | disposition home or self-care (01) | LOC: LAB SHORT 11:24 → LAB 11:24 | DX: J44.9 Chronic obstructive pulmonary disease, unspecified (principal) | CPT/HCPCS: 87070; 87205 ==

== ENCOUNTER 2020-05-09 13:01 | Day surgery (SDC) | payer MEDICARE, OTHER ==
[~2020-05-09] VITALS: Ht 172.7 cm; Wt 67.8 kg
[2020-05-09] MEDS ORDERED: PLAVIX75 MG (13:57)
== END 2020-05-09 16:23 | disposition home or self-care (01) ==
LOC: ORSCSDS 13:01
PROVIDERS: Internal Medicine Gastroenterology
PROC: 0DBH8ZX Excision of Cecum, Via Natural or Artificial Opening Endoscopic, Diagnostic (ICD-10-PCS; principal; 2020-05-09 14:30)
PROC: 0D778ZZ Dilation of Stomach, Pylorus, Via Natural or Artificial Opening Endoscopic (ICD-10-PCS; principal; 2020-05-09 14:30)
PROC: 0DBM8ZX Excision of Descending Colon, Via Natural or Artificial Opening Endoscopic, Diagnostic (ICD-10-PCS; principal; 2020-05-09 14:30)
PROC: 0DBL8ZX Excision of Transverse Colon, Via Natural or Artificial Opening Endoscopic, Diagnostic (ICD-10-PCS; principal; 2020-05-09 14:30)
PROC: 0DBK8ZX Excision of Ascending Colon, Via Natural or Artificial Opening Endoscopic, Diagnostic (ICD-10-PCS; principal; 2020-05-09 14:30)
PROC: 0DBN8ZX Excision of Sigmoid Colon, Via Natural or Artificial Opening Endoscopic, Diagnostic (ICD-10-PCS; principal; 2020-05-09 14:30)
DX: Z86.010 Personal history of colon polyps (principal); K25.9 Gastric ulcer, unspecified as acute or chronic, without hemorrhage or perforation; K31.1 Adult hypertrophic pyloric stenosis; D12.2 Benign neoplasm of ascending colon; D12.0 Benign neoplasm of cecum; D12.3 Benign neoplasm of transverse colon; D12.4 Benign neoplasm of descending colon; D12.5 Benign neoplasm of sigmoid colon; K57.30 Diverticulosis of large intestine without perforation or abscess without bleeding; K64.8 Other hemorrhoids; J44.9 Chronic obstructive pulmonary disease, unspecified; Z87.891 Personal history of nicotine dependence; K22.70 Barrett's esophagus without dysplasia; E11.9 Type 2 diabetes mellitus without complications; Z99.81 Dependence on supplemental oxygen; Z79.899 Other long term (current) drug therapy; Z79.01 Long term (current) use of anticoagulants
CPT/HCPCS: 82947; 88305; C1726; J2370; J2704; J7120

== ENCOUNTER → 2020-08-07 | Outpatient (CLI) | payer MEDICARE, OTHER ==
[~2020-08-07] MED LIST changes: +PLAVIX75 MG
== END | disposition home or self-care (01) ==
LOC: LAB SHORT 11:31 → LAB 11:31
DX: J44.9 Chronic obstructive pulmonary disease, unspecified (principal)
CPT/HCPCS: 87070; 87147; 87205

== ENCOUNTER 2020-12-09 13:36 | Day surgery (SDC) | payer MEDICARE, OTHER ==
[~2020-12-09] VITALS: Ht 175.3 cm; Wt 65.9 kg
[~2020-12-09 13:36] MED LIST changes: -PLAVIX75 MG; +PLAVIX75 MG PO
--- NOTE | 2020-12-09 15:31 | NUR ---
12/09/20 1531 Belia Hayden UNABLE TO DO DILITATION, PT. HAD FOOD IN HIS STOMACH.
== END 2020-12-09 16:10 | disposition home or self-care (01) ==
LOC: ORSCSDS 13:36
PROVIDERS: Internal Medicine Gastroenterology
PROC: 0DJ08ZZ Inspection of Upper Intestinal Tract, Via Natural or Artificial Opening Endoscopic (ICD-10-PCS; principal; 2020-12-09 14:45)
DX: R13.10 Dysphagia, unspecified (principal); I25.2 Old myocardial infarction; Z87.891 Personal history of nicotine dependence; J44.9 Chronic obstructive pulmonary disease, unspecified; K22.70 Barrett's esophagus without dysplasia; E11.9 Type 2 diabetes mellitus without complications; Z87.11 Personal history of peptic ulcer disease; Z79.01 Long term (current) use of anticoagulants; Z79.899 Other long term (current) drug therapy
CPT/HCPCS: J2704; J7120

== ENCOUNTER 2021-02-10 10:32 | Day surgery (SDC) | payer MEDICARE, OTHER ==
[~2021-02-10] VITALS: Ht 172.7 cm; Wt 64.1 kg
== END 2021-02-10 13:10 | disposition home or self-care (01) ==
LOC: ORSCSDS 10:32
PROVIDERS: Internal Medicine Gastroenterology
PROC: 0D758ZZ Dilation of Esophagus, Via Natural or Artificial Opening Endoscopic (ICD-10-PCS; principal; 2021-02-10 12:00)
DX: R13.10 Dysphagia, unspecified (principal); K31.1 Adult hypertrophic pyloric stenosis; B19.10 Unspecified viral hepatitis B without hepatic coma; I10 Essential (primary) hypertension; J44.9 Chronic obstructive pulmonary disease, unspecified; K22.70 Barrett's esophagus without dysplasia; K21.9 Gastro-esophageal reflux disease without esophagitis; Z87.891 Personal history of nicotine dependence; Z79.899 Other long term (current) drug therapy
CPT/HCPCS: C1726; J2405; J2704; J7120

== ENCOUNTER 2021-09-29 07:36 | Day surgery (SDC) | payer MEDICARE, OTHER ==
[~2021-09-29] VITALS: Ht 172.7 cm; Wt 64.1 kg
== END 2021-09-29 09:48 | disposition home or self-care (01) ==
LOC: ORSCSDS 07:36
PROVIDERS: Internal Medicine Gastroenterology
PROC: 0DJD8ZZ Inspection of Lower Intestinal Tract, Via Natural or Artificial Opening Endoscopic (ICD-10-PCS; principal; 2021-09-29 08:45)
PROC: 0D778ZZ Dilation of Stomach, Pylorus, Via Natural or Artificial Opening Endoscopic (ICD-10-PCS; principal; 2021-09-29 08:45)
DX: K31.1 Adult hypertrophic pyloric stenosis (principal); K25.7 Chronic gastric ulcer without hemorrhage or perforation; Z86.010 Personal history of colon polyps; E78.5 Hyperlipidemia, unspecified; J44.9 Chronic obstructive pulmonary disease, unspecified; Z87.891 Personal history of nicotine dependence; Z79.899 Other long term (current) drug therapy
CPT/HCPCS: 82947; C1726; J2704; J7120

== ENCOUNTER 2021-12-08 08:46 | Day surgery (SDC) | payer MEDICARE, OTHER ==
[~2021-12-08] VITALS: Ht 172.7 cm; Wt 68.7 kg
[~2021-12-08 08:46] MED LIST changes: +BREO ELLIPTA 21 EAC1 INH; +IPRAT-ALBUT 0.5-3 ML INH; +METF500 PO
--- NOTE | 2021-12-08 10:17 | NUR ---
12/08/21 1017 Ria Gamboa MONITOR INTACT WITH CONTINUOUS PULSE OXIMETRY AND INTERMITTENT BP.
--- NOTE | 2021-12-08 11:33 | NUR ---
Patient up to Ambulate independently. Gait steady. Discharge instructions reviewed with patient. Patient verbalizes understanding. Copy given to patient to take home. Discharged via wheelchair to private car for ride home.
== END 2021-12-08 23:17 | disposition home or self-care (01) ==
LOC: ORSCMMR 08:46 → ORSCSDS 14:30 → ORD 14:30 → ORSCMMR 23:17
PROVIDERS: Internal Medicine Gastroenterology
PROC: 0DBL8ZX Excision of Transverse Colon, Via Natural or Artificial Opening Endoscopic, Diagnostic (ICD-10-PCS; principal; 2021-12-08 10:15)
PROC: 0DBM8ZX Excision of Descending Colon, Via Natural or Artificial Opening Endoscopic, Diagnostic (ICD-10-PCS; principal; 2021-12-08 10:15)
DX: Z12.11 Encounter for screening for malignant neoplasm of colon (principal); Z86.010 Personal history of colon polyps; D12.3 Benign neoplasm of transverse colon; K63.5 Polyp of colon; K57.30 Diverticulosis of large intestine without perforation or abscess without bleeding; E11.9 Type 2 diabetes mellitus without complications; K21.9 Gastro-esophageal reflux disease without esophagitis; K22.70 Barrett's esophagus without dysplasia; K64.8 Other hemorrhoids; J44.9 Chronic obstructive pulmonary disease, unspecified; I25.2 Old myocardial infarction; Z87.891 Personal history of nicotine dependence; Z79.899 Other long term (current) drug therapy
CPT/HCPCS: 82947; 88305; J2370; J2704; J7120

== ENCOUNTER → 2022-01-27 | Outpatient (CLI) | payer MEDICARE, OTHER ==
[~2022-01-27] MED LIST changes: +CLOP75
[2022-01-27 13:01] LABS: Microalb/Creat Ratio UR, Rand 5.558 mg/g (0.000-30.000); Microalbumin, Random Urine 6.67 mg/L (0.000-20.000)
== END ==
LOC: LAB SHORT 10:01
PROVIDERS: Physician Assistant
DX: Z13.89 Encounter for screening for other disorder (principal)
CPT/HCPCS: 82043; 82570

== ENCOUNTER 2022-03-04 06:38 | Day surgery (SDC) | payer MEDICARE, OTHER ==
[~2022-03-04] VITALS: Ht 172.7 cm; Wt 68.4 kg
[~2022-03-04 06:38] MED LIST changes: -CLOP75
--- NOTE | 2022-03-04 08:37 | NUR ---
03/04/22 0837 Sultana Beebe History, Chart, Medications and Allergies reviewed before start of procedure.MONITOR INTACT WITH CONTINUOUS PULSE OXIMETRY, 3 LEAD AND INTERMITTENT BP.O2 VIA N/C INTACT THROUGHOUT SEDATION/PROCEDURE. See Anesthesia record
== END 2022-03-04 23:40 | disposition home or self-care (01) ==
LOC: ORSCMMR 06:38 → ORD 08:30 → ORSCMMR 23:40 → ORSCSDS 03-05 11:15
PROVIDERS: Internal Medicine Gastroenterology
PROC: 0DJ08ZZ Inspection of Upper Intestinal Tract, Via Natural or Artificial Opening Endoscopic (ICD-10-PCS; principal; 2022-03-04 08:30)
DX: K21.9 Gastro-esophageal reflux disease without esophagitis (principal); Z86.010 Personal history of colon polyps; K22.70 Barrett's esophagus without dysplasia; I10 Essential (primary) hypertension; J44.9 Chronic obstructive pulmonary disease, unspecified; Z79.82 Long term (current) use of aspirin; Z79.01 Long term (current) use of anticoagulants; Z79.899 Other long term (current) drug therapy
CPT/HCPCS: 82947; J2405; J2704; J7120

== ENCOUNTER 2022-06-18 09:47 | Day surgery (SDC) | payer MEDICARE, OTHER ==
[~2022-06-18] VITALS: Ht 172.7 cm; Wt 66.5 kg
--- NOTE | 2022-06-18 13:35 | NUR ---
06/18/22 1335 DANELLE ELIZONDO PT WAS HERE FOR AN EXTENDED RECOVERY DUE TO HYPOTENTION SEE VITAL STRIP RECORD AND DR RICARDO ROSE'S ORDERS TO GIVE IV BOLUS BEFORE DC. DR CARRANZA ALSO GAVE ORDERS TO NOT DC UNTIL HE FOUND OUT IF THE COLONOSCOPY COULD BE COMPLETED WITH ANESTHESIA/INTUBATION (DIFFICULT CASE). PT HAS ALREADY BEEN GIVEN AND DRANK AN 80Z CUP OF COFFEE AND CHOCOLATE COCOA. DR CARRANZA THEN GAVE OK TO DC PT. DR CASTILLO AND DR GUTIERRES BOTH INTERVIEWED THE PATIENT AND THE FLORES IN ORDER TO MAKE A PLAN FOR WHEN THE PT COULD RETURN AND SAFEFLEY COMPLETE THE COLONOSCOPY UP UNTIL DC AT 1323
== END 2022-06-18 13:23 | disposition home or self-care (01) ==
LOC: ORSCSDS 09:47
PROVIDERS: Internal Medicine Gastroenterology
PROC: 0D778ZZ Dilation of Stomach, Pylorus, Via Natural or Artificial Opening Endoscopic (ICD-10-PCS; principal; 2022-06-18 11:15)
DX: K31.1 Adult hypertrophic pyloric stenosis (principal); K25.7 Chronic gastric ulcer without hemorrhage or perforation; Z86.010 Personal history of colon polyps; J44.9 Chronic obstructive pulmonary disease, unspecified; I10 Essential (primary) hypertension; I25.10 Atherosclerotic heart disease of native coronary artery without angina pectoris; E78.5 Hyperlipidemia, unspecified; K21.9 Gastro-esophageal reflux disease without esophagitis; J43.9 Emphysema, unspecified; Z79.01 Long term (current) use of anticoagulants; Z79.899 Other long term (current) drug therapy; Z79.84 Long term (current) use of oral hypoglycemic drugs; Z87.891 Personal history of nicotine dependence
CPT/HCPCS: 82947; A9270; C1726; J2370; J2405; J2704; J7120

== ENCOUNTER 2022-06-22 12:42 | Day surgery (SDC) | payer MEDICARE, OTHER ==
[~2022-06-22] VITALS: Ht 172.7 cm; Wt 66.3 kg
[2022-06-22] MEDS ORDERED: CLOP75 (13:24)
--- NOTE | 2022-06-22 15:25 | NUR ---
06/22/22 1524 Belia Hayden SUCCESSFUL IV IN LEFT WRIST.
--- NOTE | 2022-06-22 16:17 | NUR ---
06/22/22 1617 Loc Heath PT INTO PACU 1557 DR RUSHING AND SEDATION NURSE NSC AT BEDSIDE MONITORED ECG 3 LEAD AND VITAL STABLE BP 124/75 HR 104 PAR 8- AO SKIN PINK WARM/MOVING ARMS AND LEGS/BREATHING REG. LUNGS CTA/PT FOLLOWS COMMANDS T 97.3 O2 SAT 97% RR 15 1602 BP 131/82
--- NOTE | 2022-06-22 17:26 | NUR ---
06/22/226 Belia Hay[address] ENTRY [address] CARRANZA DOING PT. COLONOSCOPY WHEN PT. HAD EKG CHANGES. DR. RUSHING ASKED DR. CARRANZA TO STOP CASE, PT. WAS PLACED ON HIS BACK PER DR. RUSHING VERBALIZATION & ORDERED A 12 LEAD EKG WHICH WAS DONE IN THE OR. PT. THEN TAKEN TO PACU TO RECOVER. TROPONIN WAS ORDERED & BLOOD WAS DRAWN & SENT TO LAB PER DR. RUSHING & TERE'S ORDERS. PT. DENIED ANY NAUSEA OR CHEST PAIN.
== END 2022-06-22 17:11 | disposition home or self-care (01) ==
LOC: ORSCSDS 12:42
PROVIDERS: Internal Medicine Gastroenterology
PROC: 0DBK8ZX Excision of Ascending Colon, Via Natural or Artificial Opening Endoscopic, Diagnostic (ICD-10-PCS; principal; 2022-06-22 14:15)
PROC: 0DBM8ZX Excision of Descending Colon, Via Natural or Artificial Opening Endoscopic, Diagnostic (ICD-10-PCS; principal; 2022-06-22 14:15)
PROC: 0DBL8ZX Excision of Transverse Colon, Via Natural or Artificial Opening Endoscopic, Diagnostic (ICD-10-PCS; principal; 2022-06-22 14:15)
DX: Z86.010 Personal history of colon polyps (principal); D12.2 Benign neoplasm of ascending colon; D12.3 Benign neoplasm of transverse colon; K57.30 Diverticulosis of large intestine without perforation or abscess without bleeding; K64.8 Other hemorrhoids; J44.9 Chronic obstructive pulmonary disease, unspecified; K21.9 Gastro-esophageal reflux disease without esophagitis; Z87.891 Personal history of nicotine dependence; Z79.899 Other long term (current) drug therapy; Z79.02 Long term (current) use of antithrombotics/antiplatelets; Z79.84 Long term (current) use of oral hypoglycemic drugs; E78.5 Hyperlipidemia, unspecified; R73.9 Hyperglycemia, unspecified; I10 Essential (primary) hypertension; Z99.81 Dependence on supplemental oxygen
CPT/HCPCS: 82947; 84484; 88305; 93005; 93010; J0330; J0461; J1100; J2250; J2370; J2405; J2704; J3010; J7120

== ENCOUNTER 2022-08-25 00:16 | Emergency (ER) | payer MEDICARE, OTHER ==
[~2022-08-25] VITALS: Ht 172.7 cm; Wt 65.8 kg
[~2022-08-25 00:16] MED LIST changes: +CLOP75
[2022-08-25 00:57] LABS: BASOPHILS ABSOLUTE AUTO 0.03 K/mm3 (0.00-0.23); BASOPHILS PERCENT AUTO 0 % (0-2); EOSINOPHILS ABSOLUTE AUTO 0.05 K/mm3 (0.00-0.68); EOSINOPHILS PERCENT AUTO 1 % (0-6); Hematocrit 39.1 % (37.0-53.0); Hemoglobin 13.2 g/dL (13.5-17.5); IMMATURE GRAN ABSOLUTE AUTO 0.08 K/mm3 (0.00-0.10); IMMATURE GRAN PERCENT AUTO 1 % (0-1); LYMPHOCYTES PERCENT AUTO 13 % (21-46); MONOCYTES ABSOLUTE AUTO 0.73 K/mm3 (0.16-1.47); MONOCYTES PERCENT AUTO 11 % (4-13); Mean Corpuscular HGB 34.8 pg (26.0-34.0); Mean Corpuscular HGB Conc 33.8 g/dL (31.5-36.5); Mean Corpuscular Volume 103 fL (80-100); Mean Platelet Volume 8.6 fL (9.1-12.4); NEUTROPHILS ABSOLUTE AUTO 4.96 K/mm3 (1.96-9.15); NEUTROPHILS PERCENT AUTO 74 % (41-73); Platelet Count 261 K/mm3 (150-400); RDW Coefficient Variation 13.6 % (11.7-14.2); RDW Standard Deviation 51.8 fL (35.1-46.3); Red Blood Cell Count 3.79 M/mm3 (4.30-5.90); White Blood Cell Count 6.75 K/mm3 (4.00-11.30)
[2022-08-25 01:10] LABS: Albumin, Blood 3.7 g/dL (3.4-5.0); Albumin/Globulin Ratio 1.2 (0.8-1.8); Bilirubin, Total 0.1 mg/dL (0.1-1.0); Bun/Creatinine Ratio 18.5 (12.0-20.0); Calcium, Blood 9.1 mg/dL (8.5-10.1); Creatinine, Blood 0.76 mg/dL (0.60-1.20); Potassium, Blood 5.3 mmol/L (3.5-5.5); Total Protein, Blood 6.7 g/dL (6.4-8.2)
== END 2022-08-25 04:37 | disposition home or self-care (01) ==
LOC: ER 00:16
PROVIDERS: Student in an Organized Health Care Education/Training Program
DX: R56.9 Unspecified convulsions (principal); R55 Syncope and collapse; E87.1 Hypo-osmolality and hyponatremia; Z79.899 Other long term (current) drug therapy; J44.9 Chronic obstructive pulmonary disease, unspecified; Z87.891 Personal history of nicotine dependence
CPT/HCPCS: 36415; 70450; 80053; 85025; 93005; 93010; 99284-25; J7030